=== PATIENT | female | born 1955 | race Caucasian/White ===

== ENCOUNTER 2021-03-06 08:47 | Emergency (ER) | payer OTHER ==
[~2021-03-06] VITALS: Ht 165.1 cm; Wt 61.2 kg
[2021-03-06] MEDS ORDERED: MINERAL OIL 133 ML (PYXIS) 1 EA ENEMA RC ONE ×2 (09:00→09:08)
--- NOTE | 2021-03-06 09:09 | NUR ---
RECEIVED PATINET IN ER#4,AXOX4.AMBULATORY.NO SOB NO DISTRESS NOTED.C/O ABDOMINAL PAIN WITH NO BM FOR 5 DAYS.VITAL SIGNS STABLE.
--- NOTE | 2021-03-06 09:10 | NUR ---
LAB AT BEDSIDE TO DRAW BLOOD SAMPLE.SEEN BY .
--- NOTE | 2021-03-06 09:10 | NUR ---
UNABLE TO COLLECT URINE.PATIENT TRIED .WILL WAIT.
--- NOTE | 2021-03-06 09:23 | NUR ---
TRANSFERRED FOR CT SCAN
[2021-03-06 09:32] LABS: CALCIUM, SERUM 8.7 mg/dL (8.5-10.1); CREATININE 0.7 mg/dL (0.6-1.3); POTASSIUM 3.5 mmol/L (3.5-5.1)
--- NOTE | 2021-03-06 09:34 | NUR ---
BACK FROM CT.
[2021-03-06 09:35] LABS: BASOPHILS % (AUTO) 0.5 % (0.0-2.0); EOSINOPHILS % (AUTO) 1.8 % (0.0-6.0); HEMATOCRIT 42 % (33-45); LYMPHOCYTES # (AUTO) 1.9 K/uL (0.8-4.8); LYMPHOCYTES % (AUTO) 22.2 % (20.0-44.0); MEAN CORPUSCULAR HGB CONC 33 g/dl (31.0-36.0); MEAN CORPUSCULAR VOLUME 92 fL (82-100); MONOCYTES # (AUTO) 0.5 K/uL (0.1-1.30); MONOCYTES % (AUTO) 5.6 % (2.0-12.0); NEUTROPHILS # (AUTO) 5.9 K/uL (1.8-8.9); NEUTROPHILS % (AUTO) 69.9 % (43.0-81.0); PLATELET COUNT (AUTO) 245 K/uL (150-450); RED BLOOD CELL COUNT(AUTO) 4.56 MIL/uL (4.0-5.2); WHITE BLOOD COUNT (AUTO) 8.4 K/uL (4.3-11.0)
[2021-03-06 09:37] LABS: BILIRUBIN,DIRECT 0.1 mg/dL (0.0-0.2); BILIRUBIN,TOTAL 0.6 mg/dL (0.2-1.0); TOTAL PROTEIN, SERUM 7.6 g/dL (6.4-8.2)
[2021-03-06] MEDS ORDERED: AMOX-427 PO (10:23)
[2021-03-06] MEDS ORDERED: POLY17PO4 PO (10:23)
[2021-03-06 10:32] VITALS: BP 134/71
--- NOTE | 2021-03-06 10:33 | NUR ---
PATIENT D/C HOME IN STABLE CONDITION WITH PRESCRIPTIONS.SMALL BOWEL MOVEMENT AFTER ENEMA.DISCAHRGE INSTRUCTIONS GIVEN .PATIENT VERBALIZED UNEDERSTANDING.ALL BELONGINGS TAKEN.
== END 2021-03-06 10:42 | disposition home or self-care (01) ==
LOC: ER 08:53
DX: K59.00 Constipation, unspecified (principal); K57.32 Diverticulitis of large intestine without perforation or abscess without bleeding; Z79.899 Other long term (current) drug therapy
CPT/HCPCS: 36415; 80048-TC; 80076-TC; 83690-TC; 85025-TC